=== PATIENT | female | born 1970 | race American Indian/Alaskan Native ===

== ENCOUNTER 2018-08-05 18:12 | Emergency (ER) | payer SELFPAY ==
[2018-08-05] MEDS ORDERED: DUONEB *Not for PRN Use IH ONE ×2 (18:25→18:26)
[2018-08-05] MEDS ORDERED: TYLENOL PO ONE (18:56)
[2018-08-05] MEDS ORDERED: LIDOCAINE VISCOUS 2% PO ONE (18:56)
--- NOTE | 2018-08-05 18:56 | Emergency Department Report ---
ED Asthma HPI - General Chief Complaint: Adult Asthma Stated Complaint: COUGHING/WHEZZING Time Seen by Provider: 08/05/18 18:47 Source: patient, RN notes reviewed Mode of arrival: Ambulatory Limitations: No Limitations - History of Present Illness Initial Comments: This is a 48-year-old female who is not known to this provider previously, who reports that she is not , who presents to the ER with a complaint of one week or so of cough, wheezing, shortness of breath and dry mucous production. She has abdominal wall pain with coughing, but is otherwise not having any pain. She also complains of a sore throat and "laryngitis." She reports that she consumes tobacco. She is interested in tobacco cessation. She saw her primary care doctor for similar symptoms, and she is currently on day 5 of oral steroid burst. In the emergency room, patient given albuterol, supportive care, which improved her symptoms. She is motivated to stop smoking cigarettes. She reports no DVT or pulmonary embolus risk factors. MD Complaint: "asthma attack", shortness of breath, wheezing -: Gradual, days(s) Asthma History: adult onset Severity: moderate Associated Symptoms: dry cough - Related Data Current Asthma Therapy: recent oral steroid Previous Rx's Medication Instructions Recorded Last Taken Type Acetaminophen [Tylenol Arthritis] 650 mg PO Q6HR PRN #30 tablet.er 08/05/18 Unknown Rx Albuterol Sulfate [Proair 90 mcg IH Q4HR PRN #2 aer.pow.ba 08/05/18 Unknown Rx Respiclick] Benzonatate [Tessalon Perles] 100 mg PO Q8HR PRN #30 capsule 08/05/18 Unknown Rx Fluticasone [Flonase] 1 spray NS QDAY #1 bottle 08/05/18 Unknown Rx Nicotine [Nicotine Patch] 1 each TD QDAY #30 patch.td24 08/05/18 Unknown Rx Allergies Allergy/AdvReac Type Severity Reaction Status Date / Time aspirin Allergy Unknown Verified 08/05/18 18:20 ED Review of Systems ROS: Stated complaint: COUGHING/WHEZZING Other details as noted in HPI Constitutional: denies: weakness ENT: throat pain, congestion Respiratory: cough, wheezing Cardiovascular: denies: chest pain Gastrointestinal: denies: nausea, vomiting Musculoskeletal: denies: back pain Neurological: denies: headache ED Past Medical Hx - Past Medical History Hx Hypertension: Yes Hx Asthma: Yes Additional medical history: hypothyroid - Surgical History Additional Surgical History: tubal ligation - Social History Smoking Status: Current Every Day Smoker Substance Use Type: None - Medications Home Medications: Home Medications Medication Instructions Recorded Confirmed Last Taken Type Acetaminophen [Tylenol Arthritis] 650 mg PO Q6HR PRN #30 tablet.er 08/05/18 Unknown Rx Albuterol Sulfate [Proair 90 mcg IH Q4HR PRN #2 aer.pow.ba 08/05/18 Unknown Rx Respiclick] Benzonatate [Tessalon Perles] 100 mg PO Q8HR PRN #30 capsule 08/05/18 Unknown Rx Fluticasone [Flonase] 1 spray NS QDAY #1 bottle 08/05/18 Unknown Rx Nicotine [Nicotine Patch] 1 each TD QDAY #30 patch.td24 08/05/18 Unknown Rx ED Physical Exam - General Limitations: No Limitations General appearance: alert, in no apparent distress - Head Head exam: Present: atraumatic, normocephalic - Eye Eye exam: Present: normal appearance, EOMI. Absent: nystagmus - ENT ENT exam: Present: normal exam, normal orophraynx, mucous membranes moist, normal external ear exam, other (patient is speaking in full sentences with no stridor) - Neck Neck exam: Present: normal inspection, full ROM. Absent: tenderness, meningismus - Respiratory Respiratory exam: Present: normal lung sounds bilaterally. Absent: respiratory distress, wheezes, rales, rhonchi, stridor, chest wall tenderness, accessory muscle use, decreased breath sounds, prolonged expiratory - Cardiovascular Cardiovascular Exam: Present: normal rhythm, tachycardia, normal heart sounds. Absent: systolic murmur, diastolic murmur, rubs, gallop - GI/Abdominal GI/Abdominal exam: Present: soft. Absent: distended, tenderness, guarding, rebound, rigid, pulsatile mass - Extremities Exam Extremities exam: Present: normal inspection, full ROM, other (2+ pulses noted in the bilateral upper, lower extremities. Compartments soft. No long bony tenderness. The pelvis is stable.). Absent: pedal edema, joint swelling, calf tenderness - Back Exam Back exam: Present: normal inspection, full ROM. Absent: tenderness, CVA tenderness (R), paraspinal tenderness, vertebral tenderness - Neurological Exam Neurological exam: Present: alert, oriented X3, normal gait, other (Extraocular movements intact. Tongue midline. No facial droop. Facial sensation intact to light touch in the V1, V2, V3 distribution bilaterally. 5 and 5 strength in 4 extremities.. Sensation is intact to light touch in 4 extremities.). Absent: motor sensory deficit - Psychiatric Psychiatric exam: Present: normal affect, normal mood - Skin Skin exam: Present: warm, dry, intact, normal color. Absent: rash ED Course Vital Signs 08/05/18 08/05/18 08/05/18 18:20 18:27 18:57 Temperature 99.2 F Pulse Rate 109 H Pulse Rate [ 83 93 H Posterior Bilateral Throughout] Respiratory 18 Rate Respiratory 24 24 Rate [Posterior Bilateral Throughout] Blood Pressure 125/78 Blood Pressure [Right] O2 Sat by Pulse 96 Oximetry 08/05/18 08/05/18 20:16 21:25 Temperature Pulse Rate 95 H 78 Pulse Rate [ Posterior Bilateral Throughout] Respiratory 17 17 Rate Respiratory Rate [Posterior Bilateral Throughout] Blood Pressure Blood Pressure 97/64 117/77 [Right] O2 Sat by Pulse 95 95 Oximetry ED Medical Decision Making - Lab Data Vital Signs 08/05/18 08/05/18 08/05/18 18:20 18:27 18:57 Temperature 99.2 F Pulse Rate 109 H Pulse Rate [ 83 93 H Posterior Bilateral Throughout] Respiratory 18 Rate Respiratory 24 24 Rate [Posterior Bilateral Throughout] Blood Pressure 125/78 Blood Pressure [Right] O2 Sat by Pulse 96 Oximetry 08/05/18 20:16 Temperature Pulse Rate 95 H Pulse Rate [ Posterior Bilateral Throughout] Respiratory 17 Rate Respiratory Rate [Posterior Bilateral Throughout] Blood Pressure Blood Pressure 97/64 [Right] O2 Sat by Pulse 95 Oximetry - Radiology Data Radiology results: report reviewed, image reviewed X-ray of the chest is negative for acute disease - Medical Decision Making Differential diagnosis, including but not limited to: Bronchitis, laryngitis, p neumonia Assessment and plan: A 8-year-old female who is low risk by well's criteria, with resolved tachycardia, without hypoxia, most likely has bronchitis. She is afebrile with reassuring vital signs, is speaking in full sentences, without stridor or dysphonia, and no evidence of immediate airway collapse or impending collapse. Patient is counseled to discontinue tobacco consumption. She is counseled that symptoms of bronchitis will likely take a few weeks to resolve. She is resting comfortably, noted to be playing on her cellular phone for hours, and is medically stable for discharge at this point in time. Critical care attestation.: If time is entered above; I have spent that time in minutes in the direct care of this critically ill patient, excluding procedure time. ED Disposition Clinical Impression: Bronchitis Disposition: DC-01 TO HOME OR SELFCARE Is pt being admited?: No Does the pt Need Aspirin: No Condition: Stable Instructions: Acute Bronchitis (ED) Additional Instructions: Take the medications as needed/directed. Discontinue tobacco consumption. Follow-up with the primary care doctor or pulmonary doctor within the next 4-6 weeks. Symptoms likely coming from bronchitis, chest cold, and will likely take 3-6 weeks to completely resolve. If the patient stopped smoking cigarettes, she will likely experience improvement and resolution of her symptoms. Tobacco cessation is the single most important thing patient can do to help resolve her symptoms. Please return to the ER right away with new pain, worsened pain, migration of pain, projectile vomiting, change in mental status, confusion, inability to speak, inability to breathe. Prescriptions: Acetaminophen [Tylenol Arthritis] 650 mg PO Q6HR PRN #30 tablet.er PRN Reason: Pain Albuterol Sulfate [Proair Respiclick] 90 mcg IH Q4HR PRN #2 aer.pow.ba PRN Reason: Wheezing Benzonatate [Tessalon Perles] 100 mg PO Q8HR PRN #30 capsule PRN Reason: Cough Fluticasone [Flonase] 1 spray NS QDAY #1 bottle Nicotine [Nicotine Patch] 1 each TD QDAY #30 patch.td24 Referrals: JORGE SANTOS MD [Staff Physician] - 7-10 days GINI GUZMAN MD [Primary Care Provider] - 7-10 days Forms: Work/School Release Form(ED)
--- NOTE | 2018-08-05 20:02 | XRay Report ---
FINAL REPORT EXAM: XR CHEST ROUTINE 2V HISTORY: cough bronchitis TECHNIQUE: Two view chest PA and lateral PRIORS: None. FINDINGS: Cardiac and mediastinal contours are unremarkable. No focal pulmonary infiltrate is identified. No pleural fluid collection seen. Pulmonary vasculature is unremarkable. IMPRESSION: Negative two-view chest
[2018-08-05 21:27] VITALS: BP 117/77
== END 2018-08-05 21:30 | disposition home or self-care (01) ==
LOC: ED 18:12
DX: J40 Bronchitis, not specified as acute or chronic (principal); I10 Essential (primary) hypertension; E03.9 Hypothyroidism, unspecified; F17.200 Nicotine dependence, unspecified, uncomplicated; Z98.51 Tubal ligation status; Z88.6 Allergy status to analgesic agent
CPT/HCPCS: 71046; 94640

== ENCOUNTER 2022-03-15 10:33 | Emergency (ER) | payer SELFPAY ==
--- NOTE | 2022-03-15 11:59 | XRay Report ---
CHEST 2 VIEWS INDICATION / CLINICAL INFORMATION: asthma, cough. COMPARISON: None available. FINDINGS: SUPPORT DEVICES: None. HEART / MEDIASTINUM: No significant abnormality. LUNGS / PLEURA: No significant pulmonary or pleural abnormality. No pneumothorax. ADDITIONAL FINDINGS: No significant additional findings. IMPRESSION: 1. No acute findings. Signer Name: Jaime Rojas MD Signed: 03/15/2022 11:55 AM Workstation Name: [id number]
--- NOTE | 2022-03-15 12:28 | Emergency Department Report ---
ED Asthma HPI - General Chief Complaint: Adult Asthma Stated Complaint: ASTHMA COUGH Time Seen by Provider: 03/15/22 12:23 Source: patient Mode of arrival: Ambulatory Limitations: No Limitations - History of Present Illness Initial Comments: Patient with history of asthma since childhood presents with cough for the last week that has been dry she states the inhalers have been working but she is run out of her nebulizer and her inhaler. She has been taking Mucinex DM with minimal relief. Denies any fever or chills. Shortness of breath is improved with her inhalers. She has never needed intubation for her asthma. Last needed treatment a year ago at which time she did have steroids. She has had no upper respiratory symptoms whatsoever. No known ill contacts/COVID exposure. Complaint: "asthma attack" -: Gradual, days(s) (5) Asthma History: childhood onset Severity: moderate Context: ran out of meds Associated Symptoms: dry cough. denies: fever, chest pain, hemoptysis, leg edema Treatments Prior to Arrival: inhaled bronchodilator (some help) - Related Data Current Asthma Therapy: inhaled bronchodilator Previous Rx's Medication Instructions Recorded Last Taken Type Acetaminophen [Tylenol Arthritis] 650 mg PO Q6HR PRN #30 tablet.er 08/05/18 Unknown Rx Fluticasone [Flonase] 1 spray NS QDAY #1 bottle 08/05/18 Unknown Rx Nicotine [Nicotine Patch] 1 each TD QDAY #30 patch.td24 08/05/18 Unknown Rx ALBUTEROL NEB's [Proventil 0.083% 2.5 mg IH QID PRN #25 vial 03/15/22 Unknown Rx NEBS] Albuterol Sulfate [Proair 90 mcg IH Q4HR PRN #2 aer.pow.ba 03/15/22 Unknown Rx Respiclick] Benzonatate [Tessalon Perles] 100 mg PO Q8HR PRN #30 capsule 03/15/22 Unknown Rx guaiFENesin [Guaifenesin] 1,200 mg PO BID #20 tab 03/15/22 Unknown Rx methylPREDNISolone [Medrol 4MG 4 mg PO DAILY #1 pack 03/15/22 Unknown Rx DOSEPAK (21 tabs)] Allergies Allergy/AdvReac Type Severity Reaction Status Date / Time aspirin Allergy Unknown Verified 08/05/18 18:20 ED Review of Systems ROS: Stated complaint: ASTHMA COUGH Other details as noted in HPI Comment: All other systems reviewed and negative Constitutional: denies: chills, fever Eyes: denies: eye discharge ENT: denies: throat pain, congestion Respiratory: see HPI, cough, shortness of breath, wheezing Cardiovascular: denies: chest pain, palpitations, edema Gastrointestinal: denies: abdominal pain, nausea, vomiting Genitourinary: denies: frequency, hematuria Musculoskeletal: denies: joint swelling Skin: denies: rash Neurological: denies: headache, numbness, confusion Psychiatric: denies: anxiety, depression Hematological/Lymphatic: denies: easy bleeding, easy bruising ED Past Medical Hx - Past Medical History Hx Hypertension: Yes Hx Asthma: Yes Additional medical history: hypothyroid - Surgical History Additional Surgical History: tubal ligation - Family History Family history: asthma - Social History Smoking Status: Former Smoker Smoking End Date: 05/13/21 Substance Use Type: None, Alcohol (occas) - Medications Home Medications: Home Medications Medication Instructions Recorded Confirmed Last Taken Type Acetaminophen [Tylenol Arthritis] 650 mg PO Q6HR PRN #30 tablet.er 08/05/18 Unknown Rx Fluticasone [Flonase] 1 spray NS QDAY #1 bottle 08/05/18 Unknown Rx Nicotine [Nicotine Patch] 1 each TD QDAY #30 patch.td24 08/05/18 Unknown Rx ALBUTEROL NEB's [Proventil 0.083% 2.5 mg IH QID PRN #25 vial 03/15/22 Unknown Rx NEBS] Albuterol Sulfate [Proair 90 mcg IH Q4HR PRN #2 aer.pow.ba 03/15/22 Unknown Rx Respiclick] Benzonatate [Tessalon Perles] 100 mg PO Q8HR PRN #30 capsule 03/15/22 Unknown Rx guaiFENesin [Guaifenesin] 1,200 mg PO BID #20 tab 03/15/22 Unknown Rx methylPREDNISolone [Medrol 4MG 4 mg PO DAILY #1 pack 03/15/22 Unknown Rx DOSEPAK (21 tabs)] ED Physical Exam - General Limitations: No Limitations General appearance: alert, in no apparent distress - Head Head exam: Present: atraumatic, normocephalic - Eye Eye exam: Present: normal appearance. Absent: scleral icterus, conjunctival injection - ENT ENT exam: Present: normal exam, mucous membranes moist - Neck Neck exam: Present: normal inspection. Absent: tenderness, meningismus - Respiratory Respiratory exam: Present: wheezes (Inspiratory and expiratory throughout.). Absent: rales, rhonchi, stridor, chest wall tenderness - Cardiovascular Cardiovascular Exam: Present: regular rate, normal rhythm, normal heart sounds - GI/Abdominal GI/Abdominal exam: Present: soft. Absent: distended, tenderness - Extremities Exam Extremities exam: Present: normal inspection - Neurological Exam Neurological exam: Present: alert, oriented X3 - Psychiatric Psychiatric exam: Present: normal affect, normal mood - Skin Skin exam: Present: warm, dry, intact, normal color. Absent: cyanosis ED Course Vital Signs 03/15/22 03/15/22 11:16 13:55 Temperature 98.4 F 98.8 F Pulse Rate 70 85 Respiratory 18 18 Rate Blood Pressure 147/98 142/94 [Right] O2 Sat by Pulse 97 98 Oximetry - Reevaluation(s) Reevaluation #1: 03/15/22 13:23 Significant improvement after breathing treatment and Solu-Medrol. Lungs clear. And patient with only occasional cough breathing comfortably. ED Medical Decision Making - Radiology Data Radiology results: report reviewed, image reviewed [facility] [address] [place] [address] XRay Report Signed Patient: YOHAN MARQUIS MR#: [id number] 54 : 1970 Acct:[id number] Age/Sex: 51 / F ADM Date: 03/15/22 Loc: ED Attending Dr: Ordering Physician: SHAYLA MARIANO Date of Service: 03/15/22 Procedure(s): XR chest routine 2V Accession Number(s): [id number] cc: SHAYLA MARIANO Fluoro Time In Minutes: CHEST 2 VIEWS INDICATION / CLINICAL INFORMATION: asthma, cough. COMPARISON: None available. FINDINGS: SUPPORT DEVICES: None. HEART / MEDIASTINUM: No significant abnormality. LUNGS / PLEURA: No significant pulmonary or pleural abnormality. No pneumothorax. ADDITIONAL FINDINGS: No significant additional findings. IMPRESSION: 1. No acute findings. Signer Name: Jaime Rojas MD Signed: 03/15/2022 11:55 AM Workstation Name: [email or web address] Transcribed By: ADRIANNA Dictated By: Jaime Rojas MD Electronically Authenticated By: Jaime Rojas MD Signed Date/Time: 03/15/221154 DD/ 54 TD/TT: - Medical Decision Making Significant improvement with albuterol. We will refill her nebulizer solution and inhaler. Add Medrol Dosepak, benzonatate and increase her dose of guaifenesin to 1200 mg extended release twice daily. Push fluids. - Differential Diagnosis Asthma exacerbation. Pneumonia. Viral syndrome. Critical care attestation.: If time is entered above; I have spent that time in minutes in the direct care of this critically ill patient, excluding procedure time. ED Disposition Clinical Impression: Acute asthma exacerbation Disposition: HOME / SELF CARE / HOMELESS Is pt being admited?: No Condition: Stable Instructions: Asthma, Adult, Asthma Attack Prevention, Adult Additional Instructions: refill nebulizer solution and inhaler. Add Medrol Dosepak, benzonatate and increase her dose of guaifenesin to 1200 mg extended release twice daily. Push fluids. Prescriptions: guaiFENesin [Guaifenesin] 1,200 mg PO BID #20 tab methylPREDNISolone [Medrol 4MG DOSEPAK (21 tabs)] 4 mg PO DAILY #1 pack Albuterol Sulfate [Proair Respiclick] 90 mcg IH Q4HR PRN #2 aer.pow.ba PRN Reason: Wheezing ALBUTEROL NEB's [Proventil 0.083% NEBS] 2.5 mg IH QID PRN #25 vial PRN Reason: Wheezing Benzonatate [Tessalon Perles] 100 mg PO Q8HR PRN #30 capsule PRN Reason: Cough Forms: Work/School Release Form(ED) Time of Disposition: 01:45
[2022-03-15] MEDS ORDERED: methylPREDNISolone Sod Succinate 125 MG/2 ML INJ IV ONE (12:32)
[2022-03-15] MEDS ORDERED: IPRATROPIUM/ALBUTEROL SULFATE 3 ML AMPUL.NEB IH ONE (12:32)
[2022-03-15 13:58] VITALS: BP 142/94
== END 2022-03-15 14:00 | disposition home or self-care (01) ==
LOC: ED 10:33
DX: J45.901 Unspecified asthma with (acute) exacerbation (principal); I10 Essential (primary) hypertension; Z87.891 Personal history of nicotine dependence; Z91.09 Other allergy status, other than to drugs and biological substances
CPT/HCPCS: 71046; 94640; 96374; 99283; J2930; 94644